=== PATIENT | female | born 1955 | race Caucasian/White ===

== ENCOUNTER → 2018-03-28 08:07 | Outpatient (CLI) | payer OTHER, SELFPAY ==
--- NOTE | 2018-03-28 08:08 | AAAS_ITS ---
Reason For Study: Abdominal pain Aorta Measurements Aorta Doppler Measurements Proximal aorta measures1.7 x 1.7cm. in cross- Peak systolic flow velocities within the proximal sectional axis. aorta measure 94.9 cm/sec. Distal aorta measures1.5 x 1.4cm. in cross- Peak systolic flow velocities within the distal sectional axis. aorta measure 109.0 cm/sec. Celiac artery origin - 137.0 cm/sec Celiac artery prox - 157.0 c,sec Hepatic artery - 91.7 cm/sec SMA prox - 140.0 cm/sec SMA mid - 122.0 cm/sec SMA dist - 124.0 cm/sec Splenic and NATASHA not visualized. Procedure Aorta IVC Iliac vasculature or bypass grafts 01506. Exam performed in department. Interpretation Summary Normal aortic diameter and flow No hemodynamically significant stenosis of the celiac or superior mesenteric arteries with 0-69% stenosis of each Splenic and inferior mesenteric arteries not visualized Ordering Physician: Milind Frazier Referring Physician: Jorden Craven MD Performed By: Lisa Love RVT
--- NOTE | 2018-03-28 08:45 | RAD_ITS ---
STUDY: AIR-CONTRAST UPPER GI SERIES. REASON FOR EXAM: Female, 62 years old. Mid abdominal pain. FLUOROSCOPY TIME (if supplied): (0:30) minutes/seconds TECHNIQUE: The patient ingested barium. Multiple images of the esophagus, stomach and duodenum were obtained. COMPARISON: None. FINDINGS: Zones of a small sliding hiatal hernia with gastroesophageal reflux. The stomach and duodenum are unremarkable. There is no evidence of ulceration. No mass lesion is seen. IMPRESSION: Small sliding hiatal with gastroesophageal reflux. Electronically Signed: Masoud Garza MD at 12:43 EDT Tel [phone], Service support , STUDY: X-RAY - ESOPHAGUS (BARIUM SWALLOW) WITH FLUOROSCOPY REASON FOR EXAM: Female, 62 years old. Mid abdominal pain. TECHNIQUE: 13 view(s) of the esophagus were obtained following swallowing of barium. FLUOROSCOPY TIME (if supplied): (0:21) minutes/seconds COMPARISON: None. FINDINGS: There is no demonstrated esophageal foreign body. There is no demonstrated stricture or mucosal abnormality. Small hiatal hernia with gas esophageal reflux. The patient ingested a 12 mm tablet of barium without any difficulty. Normal visualized aortic arch and descending thoracic aorta. Normal visualized pulmonary parenchyma. Normal visualized osseous structures of the thorax. RAD/Upper GI w/BA Swallow IMPRESSION: Small sliding hiatal hernia with gastroesophageal reflux. Electronically Signed: Masoud Garza MD at 12:44 EDT Tel [phone], Service support ,
== END ==
PROVIDERS: Family Provider Family Medicine; PCP Family Medicine; Visit Provider Surgery
DX: R10.9 Unspecified abdominal pain (principal)
CPT/HCPCS: 74246; 76706

== ENCOUNTER 2018-04-01 05:37 | Day surgery (SDC) | payer OTHER, SELFPAY ==
--- NOTE | 2018-04-01 | EGD_PTH ---
PATIENT: ASHVIN YADAV LOC: EN U#:[id number] AGE/SX: 62/F ROOM: RE04/01/[address]: Dr. Milind Frazier MD : 1955 BED: DIS: 04/01/2018 SPEC #: [id number] RECD: 04/01/18 09:49 STATUS: MIRIAN ANGEL #: [id number] ARVIN: 04/01/18 00:[address]: Milind Frazier DEPT: SURGICAL PATHOLOGY RECD BY: Shorty Chaney ENTERED: 04/01/18 09:50 SP TYPE: EGD BIOPSY OT DR: Dr. Jorden Craven MD Tissues: A - Duodenum, NOS B - Gastric mucous membrane C - Stomach, NOS D - Gastric mucous membrane E - Esophageal mucous membrane Procedures: Surgery Specimen Level IV HEADER OPERATION: EGD PRE-OP DIAGNOSIS: Abdominal pain TISSUE SUBMITTED: A. Duodenal biopsy, B. Antral biopsy, C. Greater curvature biopsy, D. Cardia/hiatal hernia biopsy, E. Distal esophagus MICROSCOPIC DIAGNOSIS A. Duodenum, biopsy: No significant pathologic change. No evidence of duodenitis. B. Gastric antrum, biopsy: Mild chronic gastritis. C. Greater curvature of stomach, biopsy: Mild chronic gastritis. D. Gastric cardia/hiatal hernia, biopsy: Mild chronic gastritis. E. Distal esophagus, biopsy: Fragments of benign superficial squamous mucosa. AM:osorio 04/03/18 COMMENT B. The results of immunohistochemistry for Helicobacter pylori will be reported separately ([id number]). E. Glandular epithelium is not represented in the biopsy. Clinical correlation is suggested. MICROSCOPIC DESCRIPTION Slides are reviewed. GROSS DESCRIPTION A - Received in fixative is one container labeled with the patient's name and designated duodenal biopsy. The specimen consists of two irregular fragments of light mitchell soft tissue that in aggregate measure 0.5 x 0.5 x 0.1 cm. The specimen is totally submitted in one cassette. B - Received in fixative is one container labeled with the patient's name and designated antral biopsy. The specimen consists of two irregular fragments of light mitchell soft tissue that in aggregate measure 0.5 x 0.3 x 0.1 cm. The specimen is totally submitted in one cassette. C - Received in fixative is one container labeled with the patient's name and designated greater curvature biopsy. The specimen consists of one irregular fragment of light mitchell soft tissue that measures 0.3 x 0.2 x 0.1 cm. The specimen is totally submitted in one cassette. D - Received in fixative is one container labeled with the patient's name and designated cardia/hiatal hernia. The specimen consists of one irregular fragment of light mitchell soft tissue that measures 0.5 x 0.3 x 0.1 cm. The specimen is totally submitted in one cassette. E - Received in fixative is one container labeled with the patient's name and designated distal esophageal biopsy. The specimen consists of multiple irregular fragments of light mitchell soft tissue that in aggregate measure 0.6 x 0.3 x 0.1 cm. The specimen is totally submitted in one cassette. / AM:osorio 04/01/18 TC:3 CPT: 52641 x5
--- NOTE | 2018-04-01 | IMM_PTH ---
PATIENT: ASHVIN YADAV LOC: EN U#:[id number] AGE/SX: 62/F ROOM: RE04/01/[address]: Dr. Milind Frazier MD : 1955 BED: DIS: 04/01/2018 SPEC #: [id number] RECD: 04/03/18 10:47 STATUS: MIRIAN REQ #: [id number] ARVIN: 04/01/18 00:[address]: Milind Frazire DEPT: IMMUNOHISTOCHEMISTRY RECD BY: Tanya Mcintosh ENTERED: 04/03/18 10:47 SP TYPE: IMMUNO OTHR DR: Dr. Jorden Craven MD Tissues: B - Stomach, NOS Procedures: H Pylori (initial) PHYSICIAN & INSTITUTION [place] [id number] SPECIMEN INFORMATION: Tissue Source: B ? Antral biopsy Clinical Info: Abdominal pain Specimen Number: [id number] CPT code: 45798 METHODOLOGY: Deparaffinized sections of prefer/formalin-fixed tissue or PAP/DQ stained slides are incubated with monoclonal/polyclonal antibodies/oligonucleotide probes. Localization is made via biotin free immunoperoxidase method. Appropriate controls are performed and reacted as expected. Results on target cell population are indicated in the following table: RESULTS: ANTIBODY / CLONE RESULT Block B H Pylori (polyclonal) negative These tests were developed and their performance characteristics determined by [facility]. They may not have been cleared or approved by the U.S. Food and Drug Administration. The FDA has determined that such clearance or approval is not necessary. INTERPRETATION: B. Antral biopsy: Negative for Helicobacter pylori organisms. AM:osorio 04/04/18
[2018-04-01 06:18] VITALS: BP 107/69; PULSE 73; RESP 16; TEMP 36.4; O2SAT 96; BMI 35.2
--- NOTE | 2018-04-01 07:23 | PCM.OPRPT ---
Problem List (1) Epigastric pain Status: Acute Report of Operation Date of Procedure: 04/01/18 Pre-Operative Diagnosis: Epigastric pain Post-Operative Diagnosis: Moderately large hiatal hernia, diffuse gastritis with bile staining Surgery/Procedure Performed:: Esophagogastroduodenoscopy with multiple biopsies Description of Surgical Findings:: Timeout and informed consent was obtained. 62-year-old female was taken to the endoscopy suite. Her oropharynx anesthetized with Topex. She was placed in a left lateral decubitus position. Throughout the procedure she received a total 100 mg Demerol and 4 mg Versed as intravenous sedation. Videogastroscope was inserted in the esophageal inlet. The proximal mid esophagus did not appear to be remarkable. The EG junction was only at 34 cm. Moderately large hiatal hernia noted. The esophageal mucosa grossly appeared to be normal. The scope was advanced into the stomach where there was diffuse bile staining of the entire stomach. Scope was advanced through the pylorus. The first and second portions of the duodenum were inspected this did not appear to be remarkable. The scope was withdrawn and the duodenal bulb biopsy was obtained. The scope was withdrawn back into the stomach retroflexed the hiatal hernia and cardia inspected. The scope was placed back in antegrade viewing position and mild erythema of the antrum noted. Cold forcep biopsy was also obtained of this. All biopsies obtained today with cold forcep. There appear to be some irritation of the greater curvature so biopsy was obtained of that. Scope was withdrawn. The cardia within the hiatal hernia was photographed and then biopsied. Distal esophageal biopsies just proximal to the junction were also obtained. The scope was further withdrawn without additional abnormality. The patient tolerated it well. Impression Mild diffuse gastritis. Bile staining noted. Moderately large hiatal hernia. Multiple biopsies are pending. The patient will be notified of pathology results as they become available. There were no erosions or ulcerations that would correlate with the patient's complaint of severity of pain. The patient also notes that when she lies supine the pain is improved and this does not seem to correlate well with the current findings. Mesenteric ultrasound was not remarkable. Barium swallow demonstrated the hiatal hernia. Patient is currently treated with Nexium and Carafate. Will await biopsies for further recommendations. The patient may benefit from additional evaluation of her thoracic back. Cc: Dr. Jorden Frazier M.D., F.A.C.S. Meds were given at 0712. The procedure was started 714. Procedure was completed 720. Type of Anesthesia:: IV Sedation
[2018-04-01 07:26] VITALS: BP 107/69; BP 90/57; PULSE 82; RESP 16; TEMP 36.5; O2SAT 93
[2018-04-01 07:31] VITALS: BP 107/69; BP 90/60; BP 92/70; PULSE 73; PULSE 76; RESP 16; O2SAT 92; O2SAT 94
[2018-04-01 07:36] VITALS: BP 107/69; BP 94/67; PULSE 77; RESP 16; O2SAT 96
[2018-04-01 07:41] VITALS: BP 105/73; BP 107/69; PULSE 68; RESP 16; TEMP 37; O2SAT 97
[2018-04-01 08:16] VITALS: BP 107/69
== END 2018-04-01 08:18 | disposition home or self-care (01) ==
LOC: EN 05:38 → AC 05:39
PROVIDERS: Family Provider Family Medicine; PCP Family Medicine; Visit Provider Surgery
PROC: (CPT 43239; principal; 2018-04-01 06:55)
DX: K29.50 Unspecified chronic gastritis without bleeding (principal); K44.9 Diaphragmatic hernia without obstruction or gangrene; Z86.010 Personal history of colon polyps; Z80.0 Family history of malignant neoplasm of digestive organs; Z87.440 Personal history of urinary (tract) infections
CPT/HCPCS: 43239; 88305; 88342; 99152; J7120

== ENCOUNTER → 2018-08-15 08:31 | Outpatient (CLI) | payer OTHER, SELFPAY ==
--- NOTE | 2018-08-15 08:33 | NM_ITS ---
CLINICAL: 63-year-old female with reported history of sixth thoracic vertebral compression fracture. WHOLE BODY 99m Tc MDP RADIONUCLIDE BONE SCINTIGRAPHY COMPARISON: None available FINDINGS: Following the intravenous administration of 25.3 mCi of 99m Tc MDP, whole body bone images reveal: 1. Increased radiopharmaceutical concentration is defined in the sixth thoracic vertebra. 2. Enhanced tracer concentration is identified in the acromioclavicular compartments of both shoulders, mid cervical spine posteriorly on the right, lower cervical spine posteriorly on the left, fourth and fifth lumbar vertebra posteriorly on the left and right, posterior midline sacrum, bilateral knees, ankles bilaterally, the right-left midfoot, both hands. 3. An increase in tracer concentration is identified in the left sacroiliac joint and left iliac wing. 4. The remaining skeletal structures are scintigraphically unremarkable with normal-appearing renal images and urinary bladder activity identified. Facilitated uptake is demonstrated in the greater trochanteric aspect of the right posterior proximal femur most consistent with periostitis and/or trochanteric bursitis. NM/Bone Scan Whole Body IMPRESSION: 1. The increase in radiopharmaceutical concentration defined in the sixth thoracic vertebra is consistent with trauma-fracture. In patients less than 65 years of age, increased radiopharmaceutical concentration on bone scintigraphy in uncomplicated documented fracture, may take up to 18 months for complete resolution. (Fortino et al, Seminars of Nuclear Medicine, 13:104, 1983). 2. Increased uptake defined in the left sacroiliac joint and left iliac wing may be further investigated with plain film radiography. 3. 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 Electronically Signed: Sam Cisneros DO at 13:27 EST Tel , Service support ,
== END ==
PROVIDERS: Family Provider Family Medicine; PCP Family Medicine; Referring Provider Anesthesiology Pain Medicine; Visit Provider Anesthesiology Pain Medicine
DX: R93.7 Abnormal findings on diagnostic imaging of other parts of musculoskeletal system (principal); M19.011 Primary osteoarthritis, right shoulder
CPT/HCPCS: 78306

== ENCOUNTER → 2018-08-25 08:06 | Outpatient (CLI) | payer OTHER, SELFPAY ==
--- NOTE | 2018-08-25 08:09 | BI_ITS ---
MAMMOGRAPHY - BILATERAL SCREENING REASON FOR EXAM: Female, 63 years old. Routine annual screening examination. PERTINENT HISTORY: Non-contributory. TECHNIQUE: Digital bilateral breast chaparro (3D mammographic acquisition) in the CC and MLO projections. 2-D mediolateral oblique (MLO) and craniocaudad (CC) views of both breasts were obtained. CAD: Full Field Digital Mammography with Computer Added Detection was performed. COMPARISON: Comparison is made with prior outside examination is June 26, 2017. FINDINGS: Breast Composition: The breasts are almost entirely fatty. There are no dominant masses or suspicious calcifications. Benign appearing bilateral axillary lymph nodes. No other significant abnormalities are identified. There has been no significant change since the prior study. BI/SCREENING MAMM (CAD), BILAT IMPRESSION: Stable bilateral screening mammogram. Yearly follow-up mammogram recommended. (A) ASSESSMENT CATEGORY: BIRADS Category 2: Benign. A letter regarding these results will be sent to the patient by the facility within 30 days. Approximately 10% of breast cancers are not detected by mammography. A normal mammogram should not delay biopsy of a clinically suspicious abnormality. [id number] Electronically Signed: Masoud Garza MD at 10:37 EST Tel [phone], Service support ,
== END ==
PROVIDERS: Family Provider Family Medicine; PCP Family Medicine; Visit Provider Family Medicine
DX: Z12.31 Encounter for screening mammogram for malignant neoplasm of breast (principal)
CPT/HCPCS: 77063; 77067

== ENCOUNTER → 2018-10-14 12:42 | Outpatient (CLI) | payer OTHER, SELFPAY ==
--- NOTE | 2018-10-14 12:46 | RAD_ITS ---
HISTORY: lower back pain, pain down left and right side of the body COMPARISON: None FINDINGS: # of images incl. paperwork: 4 XR Spine Lumbar Min 4 Views: 4 view lumbar spine. SOFT TISSUES: Unremarkable. No radiopaque foreign body. BONES: Mild 2 mm degenerative anterolisthesis of L3 on L4. Otherwise anatomic alignment. No sclerotic or destructive changes observed. No acute fracture is evident. JOINTS: Prominent disc degeneration L5-S1. Moderate facet degeneration L3-4, L4-5 and L5-S1. RAD/L/S Spine Min 4 Views IMPRESSION: No acute findings. Prominent facet and disc degeneration lower lumbar spine. Mild degenerative anterolisthesis of L3 on L4. at 0324 Reported and signed by: Lj Miranda MD Electronically Signed: Lj Miranda, at 3:23 EST Tel , Service support ,
== END ==
PROVIDERS: Family Provider Family Medicine; PCP Family Medicine; Referring Provider Nurse Practitioner Family; Visit Provider Nurse Practitioner Family
DX: M54.5 Low back pain (principal)
CPT/HCPCS: 72110

== ENCOUNTER → 2018-11-28 06:22 | Outpatient (CLI) | payer OTHER, SELFPAY ==
--- NOTE | 2018-11-28 06:35 | MRI_ITS ---
STUDY: MRI THORACIC SPINE WITHOUT CONTRAST REASON FOR EXAM: Female, 63 years old. Left upper abdominal and back pain. Right leg pain. HNP. TECHNIQUE: Standardized fat and water weighted pulse sequences were obtained in the sagittal and axial planes. COMPARISON: None. FINDINGS: Normal kyphosis of the thoracic spine. There is no substantial scoliosis. T1-2, T2-3, T3-4, T4-5, T5-6, T6-7, T7-8, T8-9, T9-10, T10-11, T11-12: Minimal anterior wedging of the superior endplates of T6 and T7 vertebral bodies. Moderate disc space height narrowing at T5-T6, T6-T7, T7-T8 and T9-T10 disc space levels. Mild Modic type II degenerative vertebral marrow fatty changes underneath the vertebral endplates at T2-T3, T3-T4, T5-T6, T6-T7, T7-T8 and T9-T10 disc space levels. Normal central canal and bilateral intervertebral neural foramina. Normal visualized thoracic cord. Normal conus medullaris that terminates at the T11-T12 disc level. The soft tissue structures are unremarkable. MRI/Spine Thoracic (Routine) IMPRESSION: 1. No MRI evidence of thoracic extruded disc fragment or spinal stenosis. 2. Minimal anterior wedging of T6 and T7 superior endplates may be developmental or from remote injury. 3. Mild Modic type II degenerative vertebral marrow fatty changes underneath the vertebral endplates at T2-T3, T3-T4, T5-T6, T6-T7, T7-T8 and T9-T10 disc space levels. 4. Normal thoracic spinal cord. Electronically Signed: Shay Mcintyre MD at 15:26 EST , Service support ,
== END ==
PROVIDERS: Family Provider Family Medicine; PCP Family Medicine; Referring Provider Orthopaedic Surgery; Visit Provider Orthopaedic Surgery
DX: M51.24 Other intervertebral disc displacement, thoracic region (principal)
CPT/HCPCS: 72146

== ENCOUNTER → 2019-08-26 08:19 | Outpatient (CLI) | payer OTHER, SELFPAY ==
--- NOTE | 2019-08-26 08:21 | BI_ITS ---
MAMMOGRAPHY - BILATERAL SCREENING 3-D TOMOSYNTHESIS REASON FOR EXAM: Female, 64 years old. PERTINENT HISTORY: No significant family history. TECHNIQUE: 2-D mammograms and 3-D Tomosynthesis of the breast (s) were performed. CAD was performed. COMPARISON: August 25, 2018 FINDINGS: The breast composition is of fatty tissue. Scattered benign calcifications are seen. No dense spiculated masses or suspicious microcalcifications are identified. No architectural distortion is identified. There is no skin thickening or nipple retraction. Benign appearing lymph nodes partially seen in the axillary area particularly on the right. There has been no significant change since the prior study unchanged since August 25, 2018. BI/SCREEN MAMM (CAD) W/MIRYAM BILAT IMPRESSION: No mammographic signs of malignancy. Routine yearly mammograms recommended. ASSESSMENT CATEGORY: BIRADS Category 1: Negative. A letter regarding these results will be sent to the patient by the facility within 30 days. FOLLOW UP RECOMMENDATION: Yearly follow up mammogram recommended. (A) Approximately 10% of breast cancers are not detected by mammography. A normal mammogram should not delay biopsy of a clinically suspicious abnormality. Electronically Signed: Shine Chavez, at 10:06 EST Tel , Service support ,
== END ==
PROVIDERS: Family Provider Family Medicine; PCP Family Medicine; Referring Provider Family Medicine; Visit Provider Family Medicine
DX: Z12.31 Encounter for screening mammogram for malignant neoplasm of breast (principal)
CPT/HCPCS: 77063; 77067

== ENCOUNTER → 2020-04-13 12:07 | Outpatient (CLI) | payer OTHER, SELFPAY ==
--- NOTE | 2020-04-13 12:11 | US_ITS ---
STUDY: RENAL ULTRASOUND - COMPLETE REASON FOR EXAM: Female, 64 years old. UTIs TECHNIQUE: Ultrasound evaluation of the kidneys was performed with real-time and static reeder-scale imaging. COMPARISON: None. FINDINGS: RIGHT KIDNEY: Normal location of the right kidney, which is normal in size. The right kidney measures 10.7 cm. There is a normal cortex of the right kidney. The renal cortex measures 1.7 cm. There is no right renal mass or cyst. There are no right renal calculi. There is no right hydronephrosis. DISTAL RIGHT URETER: There is non-visualization of the distal right ureter. There is no demonstrated right ureterovesical junction calculus. There is a visualized right ureteral jet. LEFT KIDNEY: Normal location of the left kidney, which is normal in size. The left kidney measures 10.6 cm. There is a normal cortex of the left kidney. The renal cortex measures 1.4 cm. There is no left renal mass or cyst. There are no left renal calculi. There is no left hydronephrosis. DISTAL LEFT URETER: There is non-visualization of the distal left ureter. There is no demonstrated left ureterovesical junction calculus. There is a visualized left ureteral jet. US/Kidney and Bladder IMPRESSION: Normal ultrasound of the kidneys. Electronically Signed: Sam Mcduffie MD at 13:21 EDT Tel , Service support ,
== END ==
PROVIDERS: PCP Family Medicine; Referring Provider Urology; Visit Provider Urology
DX: N39.0 Urinary tract infection, site not specified (principal)
CPT/HCPCS: 76770

== ENCOUNTER → 2020-09-01 08:07 | Outpatient (CLI) | payer OTHER, SELFPAY ==
--- NOTE | 2020-09-01 08:09 | BI_ITS ---
MAMMOGRAPHY - BILATERAL SCREENING REASON FOR EXAM: Female, 65 years old. Routine annual screening examination. PERTINENT HISTORY: Non-contributory. TECHNIQUE: Digital bilateral breast miryam (3D mammographic acquisition) in the CC and MLO projections. 2-D mediolateral oblique (MLO) and craniocaudad (CC) views of both breasts were obtained. CAD: Full Field Digital Mammography with Computer Added Detection was performed. COMPARISON: Comparison is made with prior study dated 08/26/2019 and 08/25/2018. FINDINGS: Breast Composition: The breasts are almost entirely fatty. There are no dominant masses or suspicious calcifications. Benign appearing small axillary lymph nodes. No other significant abnormalities are identified. There has been no significant change since the prior study. BI/SCREEN MAMM (CAD) W/MIRYAM BILAT IMPRESSION: Stable bilateral screening mammogram. Yearly follow-up mammogram recommended. (A) ASSESSMENT CATEGORY: BIRADS Category 2: Benign. A letter regarding these results will be sent to the patient by the facility within 30 days. Approximately 10% of breast cancers are not detected by mammography. A normal mammogram should not delay biopsy of a clinically suspicious abnormality. [id number] Electronically Signed: Masoud Garza, at 9:31 EST , Service support ,
== END ==
PROVIDERS: PCP Family Medicine; Referring Provider Family Medicine; Visit Provider Family Medicine
DX: Z12.31 Encounter for screening mammogram for malignant neoplasm of breast (principal)
CPT/HCPCS: 77063; 77067

== ENCOUNTER → 2021-09-04 08:35 | Outpatient (CLI) | payer OTHER, SELFPAY ==
--- NOTE | 2021-09-04 08:37 | BI_ITS ---
MAMMOGRAPHY - BILATERAL SCREENING REASON FOR EXAM: Female, 66 years old. Routine annual screening examination. PERTINENT HISTORY: Non-contributory. TECHNIQUE: Digital bilateral breast miryam (3D mammographic acquisition) in the CC and MLO projections. 2-D mediolateral oblique (MLO) and craniocaudad (CC) views of both breasts were obtained. CAD: Full Field Digital Mammography with Computer Added Detection was performed. COMPARISON: Comparison is made with prior study dated 09/01/2020 and 08/26/2019. FINDINGS: Breast Composition: The breasts are almost entirely fatty. There are no dominant masses or suspicious calcifications. Stable small benign-appearing bilateral axillary lymph nodes. No other significant abnormalities are identified. There has been no significant change since the prior study. BI/SCRN MAMM (CAD)W/MIRYAM BILAT IMPRESSION: Stable bilateral screening mammogram. Yearly follow-up mammogram recommended. (A) ASSESSMENT CATEGORY: BIRADS Category 2: Benign. A letter regarding these results will be sent to the patient by the facility within 30 days. Approximately 10% of breast cancers are not detected by mammography. A normal mammogram should not delay biopsy of a clinically suspicious abnormality. [id number] Electronically Signed: Masoud Garza MD at 10:47 EST , Service support ,
== END ==
PROVIDERS: PCP Family Medicine; Referring Provider Family Medicine; Visit Provider Family Medicine
DX: Z12.31 Encounter for screening mammogram for malignant neoplasm of breast (principal)
CPT/HCPCS: 77063; 77067

== ENCOUNTER → 2022-12-11 | Outpatient (CLI) | payer MEDICARE, OTHER, SELFPAY ==
--- NOTE | 2022-12-11 09:01 | BI_ITS ---
MAMMOGRAPHY - BILATERAL SCREENING 3-D TOMOSYNTHESIS REASON FOR EXAM: Female, 67 years old. Routine screening PERTINENT HISTORY: No significant family history. TECHNIQUE: 2-D mammograms and 3-D Tomosynthesis of the breast (s) were performed. CAD was performed. COMPARISON: 09/01/2020 FINDINGS: The breast composition is almost entirely fat. Scattered benign calcifications are seen. No dense spiculated masses or suspicious microcalcifications are identified. No architectural distortion is identified. There is no skin thickening or retraction. There has been no significant change since the prior study. BI/SCRN MAMM (CAD)W/MIRYAM BILAT IMPRESSION: No mammographic signs of malignancy. Routine yearly mammograms recommended. ASSESSMENT CATEGORY: BIRADS Category 1: Negative. A letter regarding these results will be sent to the patient by the facility within 30 days. FOLLOW UP RECOMMENDATION: Yearly follow up mammogram recommended. (A) Approximately 10% of breast cancers are not detected by mammography. A normal mammogram should not delay biopsy of a clinically suspicious abnormality. Electronically Signed: Jason Pike MD at 10:19 EDT ,
== END | disposition home or self-care (01) ==
LOC: OPBI 08:59
PROVIDERS: PCP Family Medicine; Referring Provider Family Medicine; Visit Provider Family Medicine
DX: Z12.31 Encounter for screening mammogram for malignant neoplasm of breast (principal)
CPT/HCPCS: 77063; 77067

== ENCOUNTER 2023-03-13 07:29 | Day surgery (SDC) | payer MEDICARE, OTHER, SELFPAY ==
[2023-03-13] VITALS (7 sets, daily range): BP systolic 95–118; BP diastolic 61–83; PULSE 82–105; RESP 16; TEMP 36.5–37.2; O2SAT 92–98; BMI 35.1
--- NOTE | 2023-03-13 07:57 | H&P.OPEN ---
HPI - General General Date of Admission: 03/13/23 HPI Narrative ASHVIN YADAV, is a 67 F who presents for colonoscopy due to family history. Patient states she did have incidence of 3 weeks of diarrhea since her last office visit. States on Saturday this also started up again. Patient did contact her PCP who thought it may be colitis and did give her some medication but patient did not take it as she had this scheduled. Otherwise patient denies any abdominal pain. Office visit 12/11/22 -[facility] HPI: 67-year-old female presents to office for screening colonoscopy.? Patient's mother and father both had colon cancer father was diagnosed at age stage IV.? Patient's last colonoscopy was in 2017 negative per patient.? Patient also has a history of reflux states that when she was just in [place] she was having reflux daily but patient did increase her Nexium from 20 mg to 40 and by the time she was back home in the last 5 days she has had no issues.? Patient states she has bowel movements daily denies any blood. [facility] Medical History (Updated 03/13/23 @ 08:[address] Elaine Brice MD) Back pain Encounter for screening for malignant neoplasm of colon Epigastric pain Gastric reflux GERD (gastroesophageal reflux disease) Leg cramps Non-smoker Personal history of colonic polyps Post-menopausal Wears contact lenses Wears glasses Home Medications esomeprazole magnesium 20 mg capsule,delayed release 20 mg PO DAILY 12/11/22 [History Last Taken Unknown] Cbd 1 tab PO/SL QHS 03/11/23 [History Last Taken Unknown] Allergy/AdvReac Type Severity Reaction Status Date / Time No Known Allergies Allergy Verified 03/13/23 07:36 Family History Father Colon cancer Diabetes Hypertension Kidney disease Thyroid disorder Mother Colon cancer Diabetes Hypertension Kidney disease Thyroid disorder Surgical History (Updated 12/11/22 @ 08:25 by Layla Hill) History of esophagogastroduodenoscopy (EGD) s/p bladder tuck S/P colonoscopy S/P hysterectomy S/P laparoscopic cholecystectomy Social History Smoking Status: Never smoker Past Medical/Surgical History Planned Operation Planned Operative Procedure/s: CSCOPE S.O.S: No Previous Hospitalizations/Surgeries HX Hospitalizations: No HX of Surgeries: colonoscopy/egd hysterectomy gallbladder Any Problems With Anesthesia: No You/Your Family Experience Fever (Hyperthermia) With Anes: No Cholinesterase deficiency: No Cardiovascular Hx Chest Pain within Last 2 months: No Hx of Irregular Heartbeat and/or Afib: No Hx Heart Attack: No Hx Congestive Heart Failure: No Hx Rheumatic Fever: No Hx Hypertension: No Hx Internal Defibrillator: No Hx Pacemaker: No Hx Cardiac Catheterization: No Hx Cardiac Surgery/Stents/Etc.: No Hx Stress Test: No Hx Pain in Legs when Walking/Leg Cramps: No Respiratory Chronic Cough: No HX of Shortness of Breath: No Hoarseness: No Hx Chronic Obstructive Pulmonary Disease (COPD): No Hx Asthma: No Hx Emphysema: No Hx Sleep Apnea: No Hx Respiratory Tract Infection/Cold (presently): No Do You Snore Loudly (louder than talking or can be heard): No Do You Often Feel Tired/ Fatigued/ Sleepy Dring Daytime?: No Has Anyone Observed You Stop Breathing During Sleep?: No Result (for STOP score): Negative Hx Smoking: No Smoking Status: Never smoker Gastrointestinal Hx Gastroesophageal Reflux: Yes Controlled With Meds: Yes Hx Gastrointestinal Disorders: No Hx Gastrointestinal Bleed: No Hx Ulcer: No Hx Hiatal Hernia: No Difficulty Chewing/Swallowing: No Special diet followed at home: No Hx Unplanned Weight Loss of 20#: No HX Unplanned Weight Gain of 20#: No Neurological Hx Seizures: No HX Syncope/Blackout Spells/Unconsciousness: No Hx Transient Ischemic Attacks (TIA): No Hx Multiple Sclerosis: No Hx Parkinson's Disease: No Hx Head/Neck Injury: No Hx Headaches: No Hx Back Injury/Pain: Yes (lower back pain at times/ddd) Recent Onset of Speech Difficulty: No Restless Legs: No Does patient have nerve stimulator: No Blood Disorder Hx Leukemia: No Bleeding Tendencies: No Hx Deep Vein Thrombosis: No Hx High Cholesterol: No Blood Transmitted Disease: No Hx Hepatitis: No Hx Cirrhosis: No Hx Anemia: No Hx Blood Disorders: No Reproduction : No Is Patient Lactating: No Hx Hysterectomy: Yes Hx Tubal Ligation: No Are You Post Menopause: Yes Genitourinary Hx Renal Disease: No Musculoskeletal Hx Arthritis: No Hx Rheumatoid Arthritis: No Hx Gout: No Recent Onset of an Orthopedic Problem: No Endocrine Hx Diabetes: No Thyroid Disease: No Hx Steroid Therapy: Yes (prednisone for poison nidia in the spring) Psycho/Social Hx Substance Use: No Hx Alcohol Use: No Hx Anxiety: No Hx Depression: No Mental Illness: No Hx Dementia: No Miscellaneous Hx Cancer: No Recent Exposure to Contagious Disease: No Hx of C-Diff: No Any Loose Teeth: No Allergies No Known Allergies Allergy (Verified 03/13/23 07:36) Paternal: Family History Father Colon cancer Diabetes Hypertension Kidney disease Thyroid disorder Mother Colon cancer Diabetes Hypertension Kidney disease Thyroid disorder Cancer (colon) Discharge Is Pt Admitted From a [facility], or a Nursing Home: No After D/C, Where Do you Plan to Go: Return Home Physical Exam Const alert, oriented x3 and no apparent distress HEENT normocephalic and head/scalp atraumatic Resp normal respiratory effort Cardio regular rate GI soft to palpation and non-tender; Negative for non-distended Palpation: Negative for guarding Extremity no clubbing, cyanosis or edema Neuro CN's II-XII intact bilaterally Psych mental status grossly normal Assessment & Plan Assessment/Plan (1) Family history of colon cancer: (2) Diarrhea: PLAN: Plan Patient is aware that if we do any random biopsies which due to her diarrhea will be likely this will be changed to a diagnostic colonoscopy. Surgery Risks - Colonoscopy I discussed with the patient the risks of the procedure: Yes Risks Include but are not Limited To: Risks include but are not limited to: Bleeding, perforation requiring further surgery, inability to complete colonoscopy requiring barium enema.
[2023-03-13] MEDS: Lactated Ringers 1,000 ML 15 ML IV (08:09)
--- NOTE | 2023-03-13 09:00 | COLBX_PTH ---
PATIENT: ASHVIN YADAV LOC: EN U#:[id number] AGE/SX: 67/F ROOM: RE03/13/[address]: Dr. Elaine Brice MD : 1955 BED: DIS: 03/13/2023 SPEC #: [id number] RECD: 03/13/23 10:15 STATUS: MIRIAN REAmber #: [id number] ARVIN: 03/13/23 09:[address]: Elaine Brice DEPT: SURGICAL PATHOLOGY RECD BY: Venu Mcgrath ENTERED: 03/13/23 11:48 SP TYPE: COLON BX OTHR DR: Dr. Jorden Craven MD Tissues: A - Ascending colon B - COLON BIOPSY C - Sigmoid colon biopsy Procedures: Surgery Specimen Level IV HEADER OPERATION: Colonoscopy (MAC) with polypectomy and biopsies PRE-OP DIAGNOSIS: Diarrhea, family history colon cancer TISSUE SUBMITTED: A ? Ascending colon polyp x6, B ? Random colon, C ? Sigmoid polyp x2 MICROSCOPIC DIAGNOSIS A. Ascending colon polyp x6, polypectomy: Fragments of tubular adenoma. Hyperplastic polyp. B. Colon, random biopsy: Fragments of colonic mucosa, no pathologic diagnosis. C. Sigmoid polyp x2, biopsy: Fragments of colonic mucosa, no pathologic diagnosis. NAN:osorio 03/14/2023 MICROSCOPIC DESCRIPTION Slides are reviewed. GROSS DESCRIPTION A - Received in fixative is one container labeled with the patient's name and designated ascending colon polyp x6. The specimen consists of multiple irregular fragments of light mitchell soft tissue that in aggregate measure 2.0 x 1.0 x 0.3 cm. The specimen is totally submitted in one cassette. B - Received in fixative is one container labeled with the patient's name and designated random colon. The specimen consists of multiple irregular fragments of light mitchell soft tissue that in aggregate measure 1.2 x 0.5 x 0.1 cm. The specimen is totally submitted in one cassette. C - Received in fixative is one container labeled with the patient's name and designated sigmoid polyps x2. The specimen consists of two irregular fragments of light mitchell soft tissue that in aggregate measure 0.6 x 0.3 x 0.1 cm. The specimen is totally submitted in one cassette. / NAN:oosrio 03/13/2023 TC:1 CPT: 45400 x3
--- NOTE | 2023-03-13 10:06 | OP.COLON_ITS ---
Patient Name: Portia Farmer Procedure Date: 03/13/2023 9:17 AM Date of : 1955 Age: 67 Procedure: Colonoscopy Indications: Clinically significant diarrhea of unexplained origin Providers: Elaine Brice MD Referring MD: Elaine Brice MD Medicines: Monitored Anesthesia Care Patient Profile: This is a 67 year old female. Last Colonoscopy: 2016. Complications: No immediate complications. Procedure: Pre-Anesthesia Assessment: - Prior to the procedure, a History and Physical was performed, and patient medications and allergies were reviewed. The patient's tolerance of previous anesthesia was also reviewed. The risks and benefits of the procedure and the sedation options and risks were discussed with the patient. All questions were answered, and informed consent was obtained. Prior Anticoagulants: The patient has taken no previous anticoagulant or antiplatelet agents. ASA Grade Assessment: Per anesthesia. After reviewing the risks and benefits, the patient was deemed in satisfactory condition to undergo the procedure. After I obtained informed consent, the scope was passed under direct vision. Throughout the procedure, the patient's blood pressure, pulse, and oxygen saturations were monitored continuously. The pediatric colonoscope was introduced through the anus and advanced to the cecum, identified by the appendiceal orifice, ileocecal valve and palpation. The colonoscopy was performed without difficulty. The patient tolerated the procedure well. The quality of the bowel preparation was good. Scope In: 9:32:33 AM Scope Withdrawal Time 0 hours 19 minutes 26 seconds Scope Out: 9:58:09 AM Total Procedure Duration Time 0 hours 25 minutes 36 seconds Findings: Hemorrhoids were found on perianal exam. Non-bleeding internal hemorrhoids were found. The hemorrhoids were Grade I (internal hemorrhoids that do not prolapse). Six semi-pedunculated polyps were found in the ascending colon. The polyps were 3 to 5 mm in size. These polyps were removed with a hot snare. Resection and retrieval were complete. Two sessile polyps were found in the sigmoid colon. The polyps were less than 5 mm in size. Multiple small-mouthed diverticula were found in the sigmoid colon. The exam was otherwise without abnormality. Three random biopsies were obtained with cold forceps for histology in a targeted manner in the rectum, in the sigmoid colon and in the transverse colon. Impression: - Hemorrhoids found on perianal exam. - Non-bleeding internal hemorrhoids. - Six 3 to 5 mm polyps in the ascending colon, removed with a hot snare. Resected and retrieved. - Two less than 5 mm polyps in the sigmoid colon. - Diverticulosis in the sigmoid colon. - The examination was otherwise normal. - Three random biopsies were obtained in the rectum, in the sigmoid colon and in the transverse colon. Recommendation: - Discharge patient to home. - Resume previous diet. - Continue present medications. - Await pathology results. - Repeat colonoscopy in 3 years for surveillance based on pathology results. Procedure Code(s): --- Professional --- 82941, Colonoscopy, flexible; with removal of tumor(s), polyp(s), or other lesion(s) by snare technique [id number], 59, Colonoscopy, flexible; with biopsy, single or multiple Diagnosis Code(s): --- Professional --- K64.0, First degree hemorrhoids D12.2, Benign neoplasm of ascending colon D12.5, Benign neoplasm of sigmoid colon R19.7, Diarrhea, unspecified K57.30, Diverticulosis of large intestine without perforation or abscess without bleeding CPT copyright 2017 [employer]. All rights reserved. The codes documented in this report are preliminary and upon die welder review may be revised to meet current compliance requirements. MD Elaine Reyna MD 03/13/2023 10:06:23 AM This report has been signed electronically. Number of Addenda: 0 Note Initiated On: 03/13/2023 9:17 AM
--- NOTE | 2023-03-13 10:07 | OP.CCLET_ITS ---
03/13/2023 Jorden Craven Re : Colonoscopy procedure for Portia Craven This procedure was performed on Monday, March 13, 2023. My impressions and recommendations are as follows: Impressions : - Hemorrhoids found on perianal exam. - Non-bleeding internal hemorrhoids. - Six 3 to 5 mm polyps in the ascending colon, removed with a hot snare. Resected and retrieved. - Two less than 5 mm polyps in the sigmoid colon. - Diverticulosis in the sigmoid colon. - The examination was otherwise normal. - Three random biopsies were obtained in the rectum, in the sigmoid colon and in the transverse colon. Recommendations : - Discharge patient to home. - Resume previous diet. - Continue present medications. - Await pathology results. - Repeat colonoscopy in 3 years for surveillance based on pathology results. My findings are described in the full procedure note, which is enclosed. If I can be of further assistance, please feel free to contact me at Doctor phone number(s): , Work: . Sincerely, MD Elaine Reyna MD 03/13/2023 10:06:23 AM This report has been signed electronically.
== END 2023-03-13 10:37 | disposition home or self-care (01) ==
LOC: EN 07:30 → AC 07:31
PROVIDERS: PCP Family Medicine; Referring Provider Family Medicine; Visit Provider Surgery
PROC: 0DJD8ZZ Inspection of Lower Intestinal Tract, Via Natural or Artificial Opening Endoscopic (ICD-10-PCS; CPT 45378; principal; 2023-03-13 08:55)
DX: Z12.11 Encounter for screening for malignant neoplasm of colon (principal); K57.30 Diverticulosis of large intestine without perforation or abscess without bleeding; Z80.0 Family history of malignant neoplasm of digestive organs; K64.0 First degree hemorrhoids; R19.7 Diarrhea, unspecified; D12.2 Benign neoplasm of ascending colon; D12.5 Benign neoplasm of sigmoid colon; Z86.010 Personal history of colon polyps; K21.9 Gastro-esophageal reflux disease without esophagitis
CPT/HCPCS: 45380; 45385; 83630; 87493; 87506; 88305; J7120; J2405

== ENCOUNTER → 2024-01-22 | Outpatient (CLI) | payer MEDICARE, OTHER, SELFPAY ==
--- NOTE | 2024-01-22 10:52 | BI_ITS ---
MAMMOGRAPHY - BILATERAL SCREENING REASON FOR EXAM: Female, 68 years old. Routine annual screening examination. PERTINENT HISTORY: Non-contributory. TECHNIQUE: Digital bilateral breast miryam (3D mammographic acquisition) in the CC and MLO projections. 2-D mediolateral oblique (MLO) and craniocaudad (CC) views of both breasts were obtained. CAD: Full Field Digital Mammography with Computer Added Detection was performed. COMPARISON: Comparison is made with prior study dated December 11, 2022 and September 04, 2021. FINDINGS: Breast Composition: The breasts are almost entirely fatty. There are no dominant masses or suspicious calcifications. Stable benign-appearing bilateral axillary lymph nodes. No other significant abnormalities are identified. There has been no significant change since the prior study. BI/SCRN MAMM (CAD)W/MIRYAM BILAT IMPRESSION: Stable bilateral screening mammogram. Yearly follow-up mammogram recommended. (A) ASSESSMENT CATEGORY: BIRADS Category 2: Benign. A letter regarding these results will be sent to the patient by the facility within 30 days. Approximately 10% of breast cancers are not detected by mammography. A normal mammogram should not delay biopsy of a clinically suspicious abnormality. [id number] Electronically Signed: Masoud Garza MD at 13:24 EDT ,
== END | disposition home or self-care (01) ==
LOC: OPBI 10:50
DX: Z12.31 Encounter for screening mammogram for malignant neoplasm of breast (principal)
CPT/HCPCS: 77063; 77067

== ENCOUNTER → 2025-02-03 | Outpatient (CLI) | payer MEDICARE, OTHER, SELFPAY ==
--- NOTE | 2025-02-03 09:53 | BI_ITS ---
EXAM: SCRN MAMM (CAD)W/MIRYAM BILAT 02/03/2025 CLINICAL HISTORY: F, Age 69 y/o , SCREENING TECHNIQUE: Bilateral screening digital breast tomosynthesis with 2D and 3D images. Computer aided detection. COMPARISON: Prior exam(s) dated 01/22/2024, 12/11/2022, 09/04/2021. FINDINGS: TISSUE DENSITY: The breast tissue is almost entirely fatty. Bilateral Breast Mammographic Findings: No significant masses, calcifications or other abnormalities are identified. BI/SCRN MAMM (CAD)W/MIRYAM BILAT IMPRESSION: Right Breast: BIRADS 1 NEGATIVE. Left Breast: BIRADS 1 NEGATIVE. OVERALL FINAL ASSESSMENT: BIRADS 1 NEGATIVE. RECOMMENDATION: Routine annual follow-up in 1 Year A letter with findings and recommendations will be mailed to the patient. Reading Location: [id number]
== END | disposition home or self-care (01) ==
DX: Z12.31 Encounter for screening mammogram for malignant neoplasm of breast (principal)
CPT/HCPCS: 77063; 77067